=== PATIENT | male | born 1940 | race Caucasian/White ===

== ENCOUNTER 2017-03-08 10:54 | Inpatient (IN) | payer MEDICARE, BC ==
[2017-03-06 15:33] LABS: WBC (NOT ORDERED) (RFLEX) 0 (0-5)
[2017-03-06 16:15] LABS: BASOPHILS 1.1 %; BASOPHILS ABSOLUTE 0.14 10/3/uL (0.0-0.16); EOSINOPHILS 2.8 %; EOSINOPHILS ABSOLUTE 0.34 10/3/uL (0.0-0.53); HEMATOCRIT 38.9 % (40.0-51.0); IMMATURE GRANULOCYTES 0.2 %; IMMATURE GRANULOCYTES ABSOLUTE 0.03 10/3/uL (0.0-0.11); LYMPHOCYTES 17.8 %; LYMPHOCYTES ABSOLUTE 2.19 10/3/uL (0.67-4.30); MANUAL DIFF NO %; MEAN CORPUS HGB CONC 33.4 g/dL (32.0-36.0); MEAN CORPUSCULAR HEMOGLOB 27.5 pg (26.0-34.0); MEAN CORPUSCULAR VOLUME 82.4 fL (80-100); MEAN PLATELET VOLUME 9.4 fL (9.2-13.0); MONOCYTES ABSOLUTE 0.86 10/3/uL (0.21-1.20); NEUTROPHILS 71.1 %; NEUTROPHILS ABSOLUTE 8.74 10/3/uL (2.02-8.40); PLATELET COUNT 357 10/3/uL (150-400); RBC DISTRIBUTION WIDTH 16.3 % (12.0-16.0); RED CELL COUNT 4.72 10/6/uL (4.7-6.1); WHITE BLOOD CELLS 12.3 10/3/uL (4.5-10.5)
[2017-03-06 16:24] LABS: PARTIAL THROMBO TIME 27.1 SEC (22.5-37.2)
[2017-03-06 16:25] LABS: INTERNATIONAL NORMAL RATI 1.1 UNITS (-); PROTIME (NOT ORD) 14.2 SEC (12.0-14.5)
[2017-03-06 16:33] LABS: BUN (BLOOD UREA NITROGEN) 25 MG/DL (6-23); CHLORIDE, SERUM 108 MMOL/L (96-112); CO2 (CARBON DIOXIDE) 25 MMOL/L (24-34); CREATININE 1.59 MG/DL (0.70-1.30); GFR AFRICAN AMERICAN 47 ML/MIN (>=60); GFR NON AFRICAN AMERICAN 41 ML/MIN (>=60); POTASSIUM, SERUM 5.1 MMOL/L (3.5-5.3); SGOT(AST) 22 U/L (5-40); SGPT(ALT) 21 U/L (5-65); SODIUM, SERUM 141 MMOL/L (135-148); TOTAL BILIRUBIN 0.4 MG/DL (0-1.2); TOTAL PROTEIN 7.7 G/DL (6.0-8.5)
[2017-03-06 16:34] LABS: ALBUMIN 3.8 G/DL (3.5-5.0); ALKALINE PHOSPHATASE 139 U/L (45-117); GLOBULIN 3.9 G/DL (2.5-4.1); GLUCOSE, SERUM 183 MG/DL (60-99)
[2017-03-06 17:57] LABS: ASCORBIC ACID (UR NOT ORDER) NEG (NEG); BILIRUBIN, URINE NEGATIVE (NEG); KETONE, URINE NEGATIVE (NEG); LEUKOCYTE ESTERASE(NOT OR NEG (NEG)
--- NOTE | ~2017-03-08 | DS ---
Discharge Summary [place] [address] [place]. [address] NAME: SADIA KEN : 38 STATUS : DIS IN PAT#: [id number] AGE: 76 ADM/REG DATE : 03/08/17 MR#: [id number] REPORT SERV DATE: 03/17/17 DICTATED BY: PEPITO OLSON DATE: 03/16/17 REPORT STATUS : Draft TRANSCRIBED BY: MODSoumya DATE: 03/16/17 Data Collection from hospitalization DISCHARGE DIAGNOSES: 1. Right symptomatic patellar hardware status post open reduction and internal fixation. 2. Osteomyelitis of the patella. 3. Diabetes mellitus. 4. Hypertension. 5. Obstructive sleep apnea. 6. Peripheral arterial disease. 7. History of abdominal aortic aneurysm. 8. Gastroesophageal reflux disease. 9. History of prostate cancer. CONSULTATIONS: Clinton Simmons M.D. PROCEDURES PERFORMED: Right patellar hardware removal with formal irrigation and debridement, 03/08/2017. PATHOLOGY: Bone, soft tissue, and hardware from right knee, orthopedic hardware, see gross description. Fragments of soft tissue and synovium with patchy edema and acute inflammation, fragments of bone and cartilage skin with dermal scar. MEDICATIONS: 1. Norvasc 10 mg daily. 2. Aspirin 325 mg daily x4 weeks. 3. Colace 100 mg twice daily as needed. 4. Vancomycin as directed. 5. Ferrous sulfate 300 mg with breakfast and supper. 6. Glucotrol 10 mg twice daily. 7. Levemir FlexPen 25 units subcutaneously twice daily. 8. Mag-Ox 400 mg daily. 9. Theragran tablet one with breakfast. 10.Lopressor 25 mg twice daily. 11.Ditropan 5 mg twice daily. 12.Prilosec 20 mg daily. 13.Zocor 40 mg at bedtime. 14.Glucophage 1000 mg twice daily. 15.Magnesium chloride one daily. 16.Tylenol 650 mg every 4 hours as needed. 17.Tramadol 50 mg every 8 hours as needed. CONDITION AT DISCHARGE: Upon discharge he did appear to be doing well and had no complaints. DISPOSITION: He was discharged home to continue an 1800-calorie ADA diet with activity as discussed. He was to call my office for a followup appointment. Home health care was in place upon discharge. Discharge Summary [place] [address] [place]. [address] NAME: SADIA KEN : 38 STATUS : DIS IN PAT#: [id number] AGE: 76 ADM/REG DATE : 03/08/17 MR#: [id number] REPORT SERV DATE: 03/17/17 DICTATED BY: PEPITO OLSON DATE: 03/16/17 REPORT STATUS : Draft TRANSCRIBED BY: KIMBERLYN DATE: 03/16/17 HOSPITAL COURSE: This 76-year-old male, underwent an open reduction and internal fixation of a right patellar fracture in February 2016. He did state that he had always had a bit of discomfort associated with this; however, a few weeks prior to admission. He developed some increasing pain and swelling in the area and then two knots came up over the patella then he had gone to the emergency room on 02/16/2017. His stated that one of these was aspirated with a needle and the patient was sent out on an antibiotic therapy with Septra twice daily. This had helped somewhat, but the patient was seen in followup with Dr. Arango, his primary care provider, on 03/01/2017, and then he had followed up with me as I had done his patellar fracture surgery. His antibiotics were then switched to clindamycin. He was now admitted for surgery and further treatment as there was evidence of some osteomyelitis and low-grade infection around the hardware. Upon admission to the hospital, he had been taken to the operating room where he did undergo the above right patellar hardware removal with formal irrigation and debridement. He did tolerate this well and was transferred to the recovery room. On postop day #1, he had been evaluated by Dr. Clinton Simmons for antibiotic management and he had favored three weeks of IV vancomycin followed by oral therapy preferably with Zyvox. He was to discuss this further with Case Management regarding these options. He was also to order the PICC line placement. He had also been evaluated by Physical Therapy. He did undergo PICC line placement in preparation for discharge with home health care. He was on level 2 sliding scale insulin as well as Levemir 20 units twice daily. On postop day #2, his had stated the patient had gotten confused after receiving pain medications. She did state that on postop day #2, he was not as agitated as he was a day prior. His INR was at 1.2, hemoglobin 12.6, hematocrit 38.2. He was continued on IV vancomycin as well as sliding scale insulin level 2 Levemir and he had also been placed on glipizide. He was on BiPAP at bedtime for his obstructive sleep apnea. His right knee fluid culture had revealed a sparse growth of Staph species. On postop day #3, he did remain in stable condition. He was afebrile and his vital signs were stable. His INR was at 1.2. He did continue to do well and had no new complaints noted. His culture had revealed a growth of MRSA. His WBCs were at 8.8, creatinine 1.45. Arrangement for home health care had been made and it was noted that he had coverage for Zyvox following the IV vancomycin completion. Due to his stable condition, he was then discharged with the above instructions. Information collected by: Jasiel EspinoI.T. I submit the above information as my discharge summary. RW/MODL Pepito Olson M.D. / [id number] CC: Jazlyn Kerr M.D. Hal Hill, M.D.
--- NOTE | ~2017-03-08 | CN ---
Consultation Report [facility] [address] [place]. [address] NAME: SADIA KEN : 38 STATUS : ADM IN PAT#: [id number] AGE: 76 ADM/REG DATE : 03/08/17 MR#: [id number] REPORT SERV DATE: 03/09/17 DICTATED BY: JEREMI SIMMONS DATE: 03/09/17 REPORT STATUS : Draft TRANSCRIBED BY: MODL DATE: 03/09/17 INFECTIOUS DISEASE CONSULT DATE OF CONSULTATION: 03/09/2017 REASON FOR CONSULTATION: Osteomyelitis of the patella. HISTORY OF PRESENT ILLNESS: This is a 76-year-old man who underwent ORIF of a right patellar fracture in 02/2016. He says he has always had a bit of discomfort associated with this, but a few weeks ago, he developed some increasing pain and swelling in the area and then two "knots" came up over the patella and he went to the emergency department on 02/17/2016. The states that one of these was aspirated with a needle, and the patient was sent out on antibiotic therapy with Septra b.i.d. This helped somewhat, but the patient was seen in followup with Dr. Arango, his primary care provider on and arrangements were made for him to see Dr. Olson who had done his patellar fracture surgery. His antibiotics were switched to clindamycin at that time. Dr. Olson admitted the patient yesterday for surgery as it was felt there was evidence of some osteomyelitis and low-grade infection around the hardware. The hardware was removed and the area was debrided. There was no gross fluid collection, but there was necrotic type tissue around the two screws and wiring. The tracks of the wires did have some necrotic tissue and weaker bone which was debrided. A drill was utilized to open the canal more fully, and there were some erosive changes seen. Culture from the Emergency Department visit grew MRSA, resistant to the clindamycin. The culture from yesterday's surgery has what appears to be coagulase-negative Staph although this is not final. The patient denies any recent fevers, chills, or sweats. He denies any recent infections otherwise. PAST MEDICAL HISTORY: Otherwise notable for diabetes, hypertension, obstructive sleep apnea, peripheral arterial disease, abdominal aortic aneurysm, gastroesophageal reflux, and prostate cancer. ALLERGIES: HE IS INTOLERANT OF MORPHINE. OUTPATIENT MEDICATIONS: Include Tylenol, Norvasc, aspirin, Colace, Glucotrol, insulin, magnesium oxide, metformin, metoprolol, omeprazole, Ditropan, and Zocor. SOCIAL HISTORY: He lives with his . Past smoker. FAMILY HISTORY: Noncontributory to the present infectious disease problem. REVIEW OF SYSTEMS: As outlined above. In addition, no chest pain, shortness of breath, nausea, vomiting, diarrhea, genitourinary symptoms, skin rash, easy bleeding or bruising. PHYSICAL EXAMINATION: Consultation Report [place] [id number] [facility] [place]. [address] NAME: SADIA KEN : 38 STATUS : ADM IN [facility]#: [id number] AGE: 76 ADM/REG DATE : 03/08/17 MR#: [id number] REPORT SERV DATE: 03/09/17 DICTATED BY: JEREMI SIMMONS DATE: 03/09/17 REPORT STATUS : Draft TRANSCRIBED BY: KIMBERLYN DATE: 03/09/17 VITAL SIGNS: The patient weighs 92 kg. He is afebrile. Blood pressure 150/67, pulse 71, and respiratory rate 14. GENERAL: He is pleasant, alert, in no acute distress. HEAD AND NECK: Shows a clear oral cavity. There is no thrush. Neck is supple. LUNGS: Clear to auscultation. CARDIAC: Regular rate and rhythm. Normal S1, S2 without murmur, gallop, or rub. ABDOMEN: Soft, nontender. Decreased bowel sounds. EXTREMITIES: The right knee has a postoperative dressing. Extremities have no edema. He has peripheral IV without phlebitis. SKIN: Without rash. NEUROLOGIC: Grossly nonfocal. LABORATORY STUDIES: White blood cell count 8.2, hemoglobin 12.2, platelets 308. Creatinine 1.36, which appears to be about his baseline. C-reactive protein 21.7. Alkaline phosphatase 139, other liver function tests normal. Microbiology results are as outlined above. IMPRESSION: The patient appeared to have developed somewhat chronic infection complicating his ORIF of his patellar fracture, and this does appear to include element of osteomyelitis. Most of this has been debrided, but we have to assume there may be some residual bone infection remaining. I suspect the pathogen is more assay which grew from the ER culture on 02/16/2017. I think we need to treat this aggressively, but probably not as long as we would for osteomyelitis in other settings. PLAN: I would favor three weeks of IV vancomycin, followed by oral therapy, preferably with Zyvox. I would discuss further with director of casework services regarding these options and will order a PICC line. RADHA/KIMBERLYN Jeremi Simmons M.D. / [id number] CC: Deny Olson M.D. Jessica Arango M.D.
--- NOTE | ~2017-03-08 | OP ---
Record Of Operation [facility] [address] [place]. [address] NAME: SADIA KEN : 38 STATUS : ADM IN PAT#: [id number] AGE: 76 ADM/REG DATE : 03/08/17 MR#: [id number] REPORT SERV DATE: 03/08/17 DICTATED BY: PEPITO OLSON DATE: 03/08/17 REPORT STATUS : Draft TRANSCRIBED BY: MODL DATE: 03/08/17 DATE OF PROCEDURE: 03/08/2017 PREOPERATIVE DIAGNOSIS: Right symptomatic patellar hardware status post open reduction and internal fixation, patella. POSTOPERATIVE DIAGNOSIS: Right symptomatic patellar hardware status post open reduction and internal fixation, patella. Evidence of osteomyelitis and low-grade infection around hardware. PROCEDURE PERFORMED: Right patellar hardware removal with a formal irrigation and debridement. SURGEON: Pepito Olson M.D. UKE DRIVER: Leo Adams. ANESTHESIA: General. PROCEDURE IN DETAIL: The patient was clearly identified. After obtaining informed consent, he was brought to the operating room at [facility] where he was induced under general anesthesia. Had his right lower extremity prepped and draped in the usual manner. This concluded and after an appropriate time-out procedure was performed, Kobe exsanguination was performed, tourniquet was elevated to 350 mmHg and successfully tested, at which point anterior approach to the patella was formed. Skin was divided, fascial planes were elevated. The patient has been on antibiotics for some erythema that was there a week ago in the emergency department. There was a slight concern about potential infection but upon entering the tissues, there was no gross fluid collection; however, around the two screws and [id number] wiring, there was a necrotic-type tissue that appeared to be of a chronic infectious material. Therefore, this was all carefully removed. The margin screws were uneventfully removed. The tracks of the wires does have this necrotic, chronic pus- appearing tissue with weaker bone and this was all debrided. Drill were utilized to open the canal where the screw was more fully, and there was some lack of the anterior patella consistent with erosive changes concerning for osteomyelitis. Regardless the entire area that was copiously irrigated, closed in layers, the leg was cleansed and dressed, and the patient was allowed to awaken and was transferred to the recovery room in stable condition having tolerated the procedure well. CARLOTTA/KIMBERLYN Pepito Olson M.D. / [id number] Record Of Operation [address] [place]. [address] NAME: SADIA KEN : 36 STATUS : ADM IN PAT#: [id number] AGE: 76 ADM/REG DATE : 03/08/17 MR#: [id number] REPORT SERV DATE: 03/08/17 DICTATED BY: PEPITO OLSON DATE: 03/08/17 REPORT STATUS : Draft TRANSCRIBED BY: MODL DATE: 03/08/17 CC: Pepito Olson M.D.
[~2017-03-08 10:54] MED LIST: ACET500CAP; ASA5GR PO; DITRO5 PO; DITROPAN XL10 MG PO; DSS PO; FESO4 PO; GLUCOTRO10 PO; GLUCPH; LEVEMFLXPN SC; LOP25 PO; LOTE20 PO; LOTE40 PO; MAG-DELAY PO; MAGNESIUM; MAGOX4; MIRALAXPKT PO; MULTIPLE VIT PO; NORV10 PO; PR25R PR; PRILO PO; T PO; ZOCOR40 PO; ZOFRAN4; [UNRECOGNIZED DRUG - OTHER]
[2017-03-09 07:05] LABS: BASOPHILS 0.6 %; BASOPHILS ABSOLUTE 0.05 10/3/uL (0.0-0.16); EOSINOPHILS 2.4 %; HEMATOCRIT 36.9 % (40.0-51.0); HEMOGLOBIN 12.2 g/dL (13.6-17.8); IMMATURE GRANULOCYTES 0.2 %; IMMATURE GRANULOCYTES ABSOLUTE 0.02 10/3/uL (0.0-0.11); LYMPHOCYTES 16.2 %; LYMPHOCYTES ABSOLUTE 1.33 10/3/uL (0.67-4.30); MEAN CORPUS HGB CONC 33.1 g/dL (32.0-36.0); MEAN CORPUSCULAR HEMOGLOB 27.2 pg (26.0-34.0); MEAN CORPUSCULAR VOLUME 82.4 fL (80-100); MEAN PLATELET VOLUME 9.6 fL (9.2-13.0); MONOCYTES 6.1 %; NEUTROPHILS 74.5 %; NEUTROPHILS ABSOLUTE 6.09 10/3/uL (2.02-8.40); PLATELET COUNT 308 10/3/uL (150-400); RBC DISTRIBUTION WIDTH 16.2 % (12.0-16.0); RED CELL COUNT 4.48 10/6/uL (4.7-6.1); WHITE BLOOD CELLS 8.2 10/3/uL (4.5-10.5)
[2017-03-09 07:06] LABS: MANUAL DIFF NO %
[2017-03-09 07:14] LABS: BUN (BLOOD UREA NITROGEN) 15 MG/DL (6-23); C-REACTIVE PROTEIN 21.7 MG/L (<8.0); CALCIUM, SERUM 8.5 MG/DL (8.5-10.4); CHLORIDE, SERUM 103 MMOL/L (96-112); CO2 (CARBON DIOXIDE) 21 MMOL/L (24-34); CREATININE 1.36 MG/DL (0.70-1.30); GFR AFRICAN AMERICAN 57 ML/MIN (>=60); GFR NON AFRICAN AMERICAN 49 ML/MIN (>=60); GLUCOSE, SERUM 317 MG/DL (60-99); POTASSIUM, SERUM 4.4 MMOL/L (3.5-5.3); SODIUM, SERUM 133 MMOL/L (135-148)
[2017-03-09 07:29] LABS: INTERNATIONAL NORMAL RATI 1.2 UNITS (-); PROTIME (NOT ORD) 14.9 SEC (12.0-14.5)
[2017-03-09 07:58] LABS: SED RATE 21 MM/HR (0-15)
[2017-03-10 04:55] LABS: BASOPHILS 0.5 %; BASOPHILS ABSOLUTE 0.04 10/3/uL (0.0-0.16); EOSINOPHILS 3.6 %; EOSINOPHILS ABSOLUTE 0.32 10/3/uL (0.0-0.53); HEMATOCRIT 38.2 % (40.0-51.0); HEMOGLOBIN 12.6 g/dL (13.6-17.8); IMMATURE GRANULOCYTES 0.2 %; IMMATURE GRANULOCYTES ABSOLUTE 0.02 10/3/uL (0.0-0.11); INTERNATIONAL NORMAL RATI 1.2 UNITS (-); LYMPHOCYTES 14.6 %; LYMPHOCYTES ABSOLUTE 1.29 10/3/uL (0.67-4.30); MEAN CORPUSCULAR HEMOGLOB 27.1 pg (26.0-34.0); MEAN CORPUSCULAR VOLUME 82.2 fL (80-100); MEAN PLATELET VOLUME 9.5 fL (9.2-13.0); MONOCYTES 6.2 %; MONOCYTES ABSOLUTE 0.55 10/3/uL (0.21-1.20); NEUTROPHILS 74.9 %; NEUTROPHILS ABSOLUTE 6.59 10/3/uL (2.02-8.40); PLATELET COUNT 306 10/3/uL (150-400); PROTIME (NOT ORD) 15.5 SEC (12.0-14.5); RBC DISTRIBUTION WIDTH 16.1 % (12.0-16.0); RED CELL COUNT 4.65 10/6/uL (4.7-6.1); WHITE BLOOD CELLS 8.8 10/3/uL (4.5-10.5)
[2017-03-10 04:57] LABS: MANUAL DIFF NO %
[2017-03-10 05:06] LABS: CALCIUM, SERUM 9.2 MG/DL (8.5-10.4); CHLORIDE, SERUM 103 MMOL/L (96-112); CO2 (CARBON DIOXIDE) 24 MMOL/L (24-34); CREATININE 1.45 MG/DL (0.70-1.30); GFR AFRICAN AMERICAN 53 ML/MIN (>=60); GFR NON AFRICAN AMERICAN 46 ML/MIN (>=60); POTASSIUM, SERUM 4.1 MMOL/L (3.5-5.3); SODIUM, SERUM 137 MMOL/L (135-148)
[2017-03-10 05:07] LABS: BUN (BLOOD UREA NITROGEN) 19 MG/DL (6-23); GLUCOSE, SERUM 224 MG/DL (60-99)
[2017-03-11 04:11] LABS: BASOPHILS 0.6 %; BASOPHILS ABSOLUTE 0.06 10/3/uL (0.0-0.16); EOSINOPHILS 3.3 %; EOSINOPHILS ABSOLUTE 0.31 10/3/uL (0.0-0.53); HEMATOCRIT 37.3 % (40.0-51.0); HEMOGLOBIN 12.5 g/dL (13.6-17.8); IMMATURE GRANULOCYTES 0.3 %; IMMATURE GRANULOCYTES ABSOLUTE 0.03 10/3/uL (0.0-0.11); LYMPHOCYTES 25.8 %; LYMPHOCYTES ABSOLUTE 2.41 10/3/uL (0.67-4.30); MANUAL DIFF NO %; MEAN CORPUS HGB CONC 33.5 g/dL (32.0-36.0); MEAN CORPUSCULAR HEMOGLOB 27.7 pg (26.0-34.0); MEAN CORPUSCULAR VOLUME 82.5 fL (80-100); MEAN PLATELET VOLUME 9.6 fL (9.2-13.0); MONOCYTES 8.9 %; MONOCYTES ABSOLUTE 0.83 10/3/uL (0.21-1.20); NEUTROPHILS 61.1 %; NEUTROPHILS ABSOLUTE 5.69 10/3/uL (2.02-8.40); PLATELET COUNT 307 10/3/uL (150-400); RBC DISTRIBUTION WIDTH 16.2 % (12.0-16.0); RED CELL COUNT 4.52 10/6/uL (4.7-6.1); WHITE BLOOD CELLS 9.3 10/3/uL (4.5-10.5)
[2017-03-11 04:17] LABS: INTERNATIONAL NORMAL RATI 1.2 UNITS (-); PROTIME (NOT ORD) 15.1 SEC (12.0-14.5)
[2017-03-11 04:32] LABS: BUN (BLOOD UREA NITROGEN) 25 MG/DL (6-23); CALCIUM, SERUM 8.8 MG/DL (8.5-10.4); CHLORIDE, SERUM 107 MMOL/L (96-112); CO2 (CARBON DIOXIDE) 25 MMOL/L (24-34); CREATININE 1.54 MG/DL (0.70-1.30); GFR AFRICAN AMERICAN 49 ML/MIN (>=60); GFR NON AFRICAN AMERICAN 43 ML/MIN (>=60); GLUCOSE, SERUM 72 MG/DL (60-99); POTASSIUM, SERUM 4.1 MMOL/L (3.5-5.3); SODIUM, SERUM 141 MMOL/L (135-148)
[2017-03-11] MEDS ORDERED: ULTRAM50 PO (14:13)
[2017-03-11] MEDS ORDERED: ZYVOXPO PO (14:14)
== END 2017-03-11 16:09 | DRG 486 ==
LOC: SDC 10:54 → SDC/OF 15:53 → 3SO 17:39
PROVIDERS: Nurse Practitioner Acute Care; Orthopaedic Surgery
PROC: 0JDN0ZZ Extraction of Right Lower Leg Subcutaneous Tissue and Fascia, Open Approach (ICD-10-PCS; 2017-03-08)
PROC: 0SPC04Z Removal of Internal Fixation Device from Right Knee Joint, Open Approach (ICD-10-PCS; principal; 2017-03-08 13:00)
PROC: 02HV33Z Insertion of Infusion Device into Superior Vena Cava, Percutaneous Approach (ICD-10-PCS; 2017-03-09)
PROC: 4A02X4A Measurement of Cardiac Electrical Activity, Guidance, External Approach (ICD-10-PCS; 2017-03-09)
DX: T84.53XA Infection and inflammatory reaction due to internal right knee prosthesis, initial encounter (principal); M86.18 Other acute osteomyelitis, other site; E11.22 Type 2 diabetes mellitus with diabetic chronic kidney disease; N18.3 Chronic kidney disease, stage 3 (moderate); I12.9 Hypertensive chronic kidney disease with stage 1 through stage 4 chronic kidney disease, or unspecified chronic kidney disease; E78.5 Hyperlipidemia, unspecified; K21.9 Gastro-esophageal reflux disease without esophagitis; G47.33 Obstructive sleep apnea (adult) (pediatric)
CPT/HCPCS: 36569; 71020; 73560-RT; 80048; 80053; 80202; 81001; 82962; 85025; 85610; 85652; 85730; 86140; 87015; 87070; 87075; 87077; 87102; 87116; 87186; 87205; 88300; 88304; 88311; 97110-GP; 97161-GP; 97166-GO; 97530-GP; 97535-GO; A9270-GY; C1751; G8978-CK-GP; G8979-CJ-GP; J0690; J2250; J2405; J2795; J3010; J3370